=== PATIENT | female | born 1970 | race Two or more races ===

== ENCOUNTER 2017-05-24 08:07 | Outpatient (CLI) | payer OTHER | END 2017-05-24 08:14 | disposition home or self-care (01) | LOC: TOM 08:07 | DX: D33.4 Benign neoplasm of spinal cord (principal) ==

== ENCOUNTER 2018-05-31 08:30 | Outpatient (CLI) | payer OTHER | END 2018-05-31 08:41 | disposition home or self-care (01) | LOC: LAB 08:30 | DX: D33.4 Benign neoplasm of spinal cord (principal); Z51.81 Encounter for therapeutic drug level monitoring ==

== ENCOUNTER 2018-05-31 09:11 | Outpatient (CLI) | payer OTHER | END 2018-05-31 16:28 | disposition home or self-care (01) | LOC: MRI 09:11 | DX: D33.4 Benign neoplasm of spinal cord (principal); N60.11 Diffuse cystic mastopathy of right breast; N60.12 Diffuse cystic mastopathy of left breast | CPT/HCPCS: 72157 ==

== ENCOUNTER 2019-07-01 07:47 | Outpatient (CLI) | payer OTHER | END 2019-07-01 10:07 | disposition home or self-care (01) | LOC: MRI 07:47 | DX: D49.2 Neoplasm of unspecified behavior of bone, soft tissue, and skin (principal); M54.5 Low back pain | CPT/HCPCS: 72142; 72157 ==

== ENCOUNTER → 2019-08-21 09:33 | Outpatient (CLI) | payer OTHER | END | disposition home or self-care (01) | LOC: LAB 09:33 | PROVIDERS: ATTEND Radiology Diagnostic Radiology | DX: N20.0 Calculus of kidney (principal) ==

== ENCOUNTER → 2019-08-21 | Outpatient (CLI) | payer OTHER | END | disposition home or self-care (01) | LOC: MRI 09:37 | PROVIDERS: ATTEND Neurological Surgery | DX: D33.4 Benign neoplasm of spinal cord (principal) | CPT/HCPCS: 72157 ==

== ENCOUNTER → 2020-03-10 09:19 | Outpatient (CLI) | payer OTHER | END | disposition home or self-care (01) | LOC: LAB 09:19 | PROVIDERS: ATTEND Radiology Diagnostic Radiology | DX: N20.0 Calculus of kidney (principal) ==

== ENCOUNTER 2020-03-17 11:04 | Outpatient (CLI) | payer OTHER | END 2020-03-17 11:24 | disposition home or self-care (01) | LOC: RAD 11:04 → MRI 11:15 → RAD 11:24 | PROVIDERS: ATTEND Neurological Surgery | DX: D33.4 Benign neoplasm of spinal cord (principal) | CPT/HCPCS: 72157 ==

== ENCOUNTER 2020-06-23 10:10 | Outpatient (CLI) | payer OTHER | END 2020-06-23 10:23 | disposition home or self-care (01) | LOC: MRI 10:10 | PROVIDERS: ATTEND Neurological Surgery | DX: D33.4 Benign neoplasm of spinal cord (principal) | CPT/HCPCS: 72157 ==

== ENCOUNTER → 2020-06-23 10:48 | Outpatient (CLI) | payer OTHER | END | disposition home or self-care (01) | LOC: LAB 10:48 | PROVIDERS: ATTEND Radiology Diagnostic Radiology | DX: N20.0 Calculus of kidney (principal) ==

== ENCOUNTER 2021-02-18 08:14 | Outpatient (CLI) | payer OTHER | END 2021-02-18 08:23 | disposition home or self-care (01) | LOC: MRI 08:14 | DX: M54.59 Other low back pain (principal); C72.0 Malignant neoplasm of spinal cord | CPT/HCPCS: 72157 ==

== ENCOUNTER 2021-05-19 08:45 | Outpatient (CLI) | payer OTHER | END 2021-05-19 08:48 | disposition home or self-care (01) | LOC: MRI 08:45 | DX: C72.0 Malignant neoplasm of spinal cord (principal) | CPT/HCPCS: 72157 ==

== ENCOUNTER 2021-08-23 10:43 | Outpatient (CLI) | payer OTHER | END 2021-08-23 11:04 | disposition home or self-care (01) | LOC: MRI 10:43 | DX: C72.0 Malignant neoplasm of spinal cord (principal) | CPT/HCPCS: 72157 ==